=== PATIENT | male | born 1985 | race Caucasian/White ===

== ENCOUNTER 2018-03-23 12:26 | Emergency (ER) | payer OTHER ==
[2018-03-23 12:36] VITALS: BP 135/79
--- NOTE | 2018-03-23 13:36 | EDPHY ---
H & P Time Seen by Provider: 03/23/18 13:02 HPI/ROS: CHIEF COMPLAINT: Right hand possible retained foreign body HISTORY OF PRESENT ILLNESS: 33-year-old male presents to the emergency department after he was seen in urgent care for possible retained foreign body. 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 He felt piece of wood go in the palm of his right hand about 3 or 4 hr ago. He was able to pull the piece of wood out but is not sure if he was able to remove the entire piece. He went to urgent care and had x-rays taken which were negative but they could not exclude retained foreign body and was sent to the emergency department for evaluation. Patient believes his tetanus shot is current. Denies any other injury or trauma. He is right-hand dominant. ROS: Denies numbness or tingling in his fingers, pain in the right wrist or elbow. Past Medical/Surgical History: Negative Social History: Originally from [place] Smoking Status: Current every day smoker Physical Exam: On examination the patient has swelling noted to the palm of the right hand over the thenar eminence. He has a small puncture wound to the base of the palm of the right hand however his tenderness is just distal to this area more to the palm of the right hand. He has full range of motion of his fingers. He does have more pain with movement of the right thumb however. There is no purulent drainage or drainage from the puncture wound site. He has normal sensation to light touch with normal 2 point discrimination. Constitutional: Initial Vital Signs Temperature (C) 36.5 C 03/23/18 12:34 Heart Rate 68 03/23/18 12:34 Respiratory Rate 18 03/23/18 12:34 Blood Pressure 135/79 H 03/23/18 12:34 O2 Sat (%) 97 03/23/18 12:34 Allergies/Adverse Reactions: No Known Allergies Allergy (Unverified 03/23/18 12:37) Home Medications: Medication Instructions Recorded Cephalexin [Keflex] 500 mg PO QID #28 cap 03/23/18 MDM/Departure - [facility] ED Course/Re-evaluation: 33-year-old male presents with right hand injury. X-rays were already obtained at urgent care which revealed no radiopaque foreign body and the patient was sent to the emergency department for further evaluation. On examination the patient has tenderness with palpation over the thenar eminence. No obvious palpable retained foreign body noted. The thenar eminence is quite tender. He is able to move his right thumb. There is no pain at the 1st MCP joint. There is no purulent drainage from the wound. Bedside ultrasound was used in no foreign body visualized on scan. Hand surgeon on-call is Dr. Jamal Delcid, a page has been placed and awaiting his call at 1:[address] Jamal Delcid called back at 3:10 p.m. And agreed with plan of oral antibiotics , Keflex, splint, and will see him in follow-up tomorrow. The patient understands that he could still have retained foreign body in his right hand that is not visible on exam or ultrasound. The case was discussed with Dr. Celeste Beck, secondary supervising physician, who agrees with treatment and plan. - Depart Disposition: Home, Routine, Self-Care Clinical Impression: possible retained foreign body right moore Puncture wound of hand, right Qualifiers: Encounter type: initial encounter Foreign body presence: unspecified Qualified Code(s): S61.431A - Puncture wound without foreign body of right hand, initial encounter Condition: Good Instructions: Cephalexin (By mouth), Puncture Wound (ED) Additional Instructions: It is possible you could have a retained piece of wood in her hand. You need to follow up with Hand surgery tomorrow. Keflex 500 mg 4 times daily to prevent any kind of infection. You can soak your hand in warm water as discussed. Splint for comfort and support. Call to arrange follow-up with Dr. Jamal Delcid for tomorrow. Prescriptions: Cephalexin [Keflex] 500 mg PO QID #28 cap Referrals: Bin Delcid MD [Medical Doctor] - 1 day without fail (Hand surgeon on-call)
[2018-03-23] MEDS ORDERED: IBUPROFEN 600 MG TAB PO ONE (15:16)
== END 2018-03-23 15:33 | disposition home or self-care (01) ==
DX: S61.431A Puncture wound without foreign body of right hand, initial encounter (principal); W45.8XXA Other foreign body or object entering through skin, initial encounter; Y93.E9 Activity, other interior property and clothing maintenance; Y99.0 Civilian activity done for income or pay; F17.200 Nicotine dependence, unspecified, uncomplicated